=== PATIENT | male | born 1955 | race Caucasian/White ===

== ENCOUNTER 2019-05-11 10:48 | Emergency (ER) | payer OTHER ==
[~2019-05-11] VITALS: Ht 167.6 cm; Wt 65.8 kg
--- NOTE | 2019-05-11 11:00 | NUR ---
[id number] [place] [address] [place]RE[place] FOR GENERAL WEAKNESS; ADMITS TO +[facility] LAST NIGHT. PATIENT A/OX3, BREATHING EVEN AND UNLABORED, DENIES PAIN AT THIS TIME. ATTACHED TO THE MONITOR.
[2019-05-11] MEDS ORDERED: IV NS 0.9% 1,000 ML BAG IV ONE (11:30)
--- NOTE | 2019-05-11 12:00 | NUR ---
CAME BACK FROM CT.
[2019-05-11 12:07] LABS: BASOPHILS % (AUTO) 0.5 % (0.0-2.0); EOSINOPHILS % (AUTO) 4.7 % (0.0-6.0); HEMATOCRIT 46 % (39-51); HEMOGLOBIN 15.6 g/dL (13.5-17.5); LYMPHOCYTES % (AUTO) 36.8 % (20.0-44.0); MEAN CORPUSCULAR HGB CONC 34 g/dl (31.0-36.0); MEAN CORPUSCULAR VOLUME 100 fL (80-96); MONOCYTES # (AUTO) 0.5 /CMM (0.1-1.30); MONOCYTES % (AUTO) 8.8 % (2.0-12.0); NEUTROPHILS # (AUTO) 2.7 /CMM (1.8-8.9); NEUTROPHILS % (AUTO) 49.2 % (43.0-81.0); PLATELET COUNT (AUTO) 344 /CMM (150-450); RED BLOOD CELL COUNT(AUTO) 4.57 MIL/uL (4.5-6.0); WHITE BLOOD COUNT (AUTO) 5.4 K/uL (4.3-11.0)
[2019-05-11 12:17] LABS: CALCIUM, SERUM 9.3 mg/dL (8.5-10.1); CARBON DIOXIDE 29 mmol/L (21-32); CHLORIDE 107 mmol/L (98-107); CREATININE 0.7 mg/dL (0.6-1.3); GLUCOSE 121 mg/dL (74-106); POTASSIUM 3.9 mmol/L (3.5-5.1); SODIUM SERUM 144 mmol/L (136-145); UREA NITROGEN, BLOOD 5 mg/dL (7-18)
[2019-05-11 12:24] LABS: APPEARANCE,URINE Clear (CLEAR); BILIRUBIN,URINE Negative (NEGATIVE); BLOOD, URINE Negative Ery/uL (NEGATIVE); COLOR,URINE Yellow (YELLOW); KETONES,URINE Negative (NEGATIVE); LEUKOCYTE ESTERASE ,URINE Negative (NEGATIVE); NITRITE, URINE Negative (NEGATIVE); PROTEIN,URINE Negative (NEGATIVE); UGLUCOSE Negative (NEGATIVE); UROBILINOGEN,URINE 0.2 EU/dL (0.2)
[2019-05-11 12:35] LABS: ALANINE AMINOTRANSFERASE 21 U/L (12-78); ALBUMIN 3.9 g/dL (3.4-5.0); ALKALINE PHOSPHATASE 109 U/L (46-116); ASPARTATE AMINOTRANSFERASE 16 U/L (15-37); BILIRUBIN,DIRECT 0.1 mg/dL (0.0-0.2); BILIRUBIN,TOTAL 0.4 mg/dL (0.2-1.0); TOTAL PROTEIN, SERUM 7.7 g/dL (6.4-8.2)
--- NOTE | 2019-05-11 14:30 | NUR ---
HOMELESS DISCHARGE SIGNED, RESOURCES PROVIDED. PATIENT GIVEN A MEAL TRAY AND TOLERATED WELL. REFUSED TAP CARD DUE TO PATIENT HAVING AN ACCESS CARD. PATIENT ABLE TO AMBULATE WITH A CANE, STEADY GAIT. PATIENT DENIES PAIN OR DISCOMFORT AT THIS TIME. NEEDS ATTENDED. PIV REMOVED, Patient discharged in stable condition. Written and verbal after care instructions given. Patient verbalizes understanding of instruction.
[2019-05-11 14:47] VITALS: BP 130/79
== END 2019-05-11 14:47 | disposition home or self-care (01) ==
LOC: ER 10:56
DX: S09.8XXA Other specified injuries of head, initial encounter (principal); R55 Syncope and collapse; F10.129 Alcohol abuse with intoxication, unspecified; I10 Essential (primary) hypertension; E11.9 Type 2 diabetes mellitus without complications; F17.200 Nicotine dependence, unspecified, uncomplicated; Y90.7 Blood alcohol level of 200-239 mg/100 ml; Z59.0 Homelessness; W01.198A Fall on same level from slipping, tripping and stumbling with subsequent striking against other object, initial encounter; Y93.89 Activity, other specified; Y92.89 Other specified places as the place of occurrence of the external cause; Y99.8 Other external cause status
CPT/HCPCS: 36415; 70450; 71045; 72125; 80048; 80076; 80307; 81001; 82962; 84484; 85025; 93005; 96360; 99284; J7030; L0172; 80305; 81000-TC; G0480

== ENCOUNTER 2019-07-22 10:31 | Emergency (ER) | payer OTHER ==
[~2019-07-22] VITALS: Ht 170.2 cm; Wt 72.6 kg
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
--- NOTE | 2019-07-22 10:42 | NUR ---
DR MCKEON AT BEDSIDE
[2019-07-22] MEDS ORDERED: HYDROCODONE/APAP 5/325MG 1 EACH TABLET ONE (10:59)
[2019-07-22] MEDS ORDERED: HYDROCODONE/APAP 5/325MG 1 EACH TABLET PO ONE (11:00)
--- NOTE | 2019-07-22 11:03 | NUR ---
patient denies allergy to codeine
--- NOTE | 2019-07-22 13:14 | NUR ---
Patient given written and verbal discharge instructions. Patient verbalizes understanding of instructions. Patient is ambulatory using cane with steady gait. Refuses offer of custodial placement. Patient given list of available shelters in surrounding area. [place] and water provided. In proper clothing upon discharge. Name band removed.
[2019-07-22 13:15] VITALS: BP 124/60
== END 2019-07-22 13:15 | disposition home or self-care (01) ==
LOC: ER 10:35
DX: M79.605 Pain in left leg (principal); I10 Essential (primary) hypertension; J45.909 Unspecified asthma, uncomplicated; E11.9 Type 2 diabetes mellitus without complications; Z88.5 Allergy status to narcotic agent